=== PATIENT | male | born 1960 | race Caucasian/White ===

== ENCOUNTER → 2017-04-28 | Outpatient (CLI) | payer OTHER ==
[~2017-04-28] MED LIST: ASPCH81X PO; ISOS60TA2 PO; LEVE1TAB57 PO; LISI-729 PO; NITR0.4S2 UT; SIMV40TA4 PO; SYMIN160 INH; [UNRECOGNIZED DRUG - REMARK] PO
[2017-04-28 18:22] LABS: HEMATOCRIT 42.5 % (42-52); MEAN CELL VOLUME 90.4 fL (80-100); MEAN CORPUSCULAR HEMOGLOBIN 31.7 pg (25-34); MEAN CORPUSCULAR HGB CONC 35.1 g/dl (32-36); WHITE BLOOD COUNT 7.14 K/uL (4.8-10.8)
[2017-04-28 18:23] LABS: MEAN PLATELET VOLUME 10.6 fL (7.4-10.4); PLATELET COUNT 307 K/uL (130-400)
[2017-04-28 18:29] LABS: ALT/SGPT 29 U/L (12-78); AST/SGOT 17 U/L (15-37); BLOOD UREA NITROGEN 15 mg/dl (7-18); BUN/CREATININE RATIO 15.3 (10-20); CALCIUM 8.9 mg/dl (8.5-10.1); CARBON DIOXIDE 26 mmol/L (21-32); CHLORIDE 110 mmol/L (98-107); GLUCOSE 79 mg/dl (70-99); POTASSIUM 4.2 mmol/L (3.5-5.1); SODIUM 141 mmol/L (136-145)
[2017-04-28 18:32] LABS: ALKALINE PHOSPHATASE 79 U/L (45-117); CHOLESTEROL 145 mg/dl (0-200); CHOLESTEROL/HDL RATIO 3.3; HDL CHOLESTEROL 44 mg/dl; LDL CHOLESTEROL CALCULATED 84 mg/dl; RHEUMATOID FACTOR < 10.0 U/mL (0-15); TRIGLYCERIDES 84 mg/dl (0-150); VERY LOW DENSITY LIPOPROT CALC 17 mg/dl
[2017-04-28 19:15] LABS: LYME DISEASE AB IGG NEG (NEG); LYME DISEASE AB IGM NEG (NEG)
[2017-04-28 19:53] LABS: EOSINOPHIL % 0.9 %; LYMPH ABS # 1.76 K/uL (1.2-3.4); LYMPHOCYTE % 24.6 %; MDIFF REQUEST Y; VACUOLIZATION 1+
== END | disposition home or self-care (01) ==
LOC: C.LABSPEC 17:57
PROVIDERS: ATTEND Family Medicine
DX: M79.631 Pain in right forearm (principal); R56.9 Unspecified convulsions; I10 Essential (primary) hypertension; E78.2 Mixed hyperlipidemia